=== PATIENT | female | born 1955 | race Caucasian/White ===

== ENCOUNTER 2020-03-05 06:23 | Day surgery (SDC) | payer BC ==
[2020-03-05] MEDS ORDERED: Propofol 200 MG/20 ML SDV ONE (07:01)
[2020-03-05] MEDS ORDERED: fentaNYL 100 MCG/2 ML SDV ONE (07:01)
[2020-03-05] MEDS ORDERED: Midazolam 1 MG/ML 2 ML SDV ONE (07:01)
[2020-03-05] MEDS ORDERED: Dextrose 5%-Lactated Ringers 1,000 ML IV SCH (07:30)
--- NOTE | 2020-03-15 13:36 | OR ---
DATE OF PROCEDURE: 03/05/2020 SURGEON: Ramy Baum MD PREOPERATIVE DIAGNOSIS: Indications for screening colonoscopy. POSTOPERATIVE DIAGNOSIS: Normal screening colonoscopy. OPERATIVE PROCEDURE: Colonoscopy. ANESTHESIA: IV sedation. INDICATIONS FOR PROCEDURE: A 65-year-old presenting for a screening colonoscopy. She has no personal or family history of colon neoplasia. Plan is to proceed with colonoscopy with biopsies and/or polypectomy as indicated. Potential risks including bleeding and perforation were discussed, and the patient wishes to proceed. DETAILS OF PROCEDURE: The patient was taken to the operating room, placed in a left lateral decubitus position. IV sedation was administered, after which the initial digital rectal exam was performed and was unremarkable. Scope was then passed into the rectum with retroflexion revealing uncomplicated hemorrhoidal columns. Scope was eventually passed to the level of the cecum. The prep was quite good with only a small amount of liquid stool present to that level. No abnormalities were noted. Specifically, there were no diverticula. No areas of colitis. No polyps or other signs of neoplasia. Scope was then withdrawn. The above findings reconfirmed, and the procedure then concluded. Recommendation would be to repeat colonoscopy in 10 years. Ramy Baum MD /[id number]
== END 2020-03-05 09:40 | disposition home or self-care (01) ==
LOC: JP.SDS 06:23
PROVIDERS: ATTEND Surgery
DX: Z12.11 Encounter for screening for malignant neoplasm of colon (principal); I10 Essential (primary) hypertension; E78.5 Hyperlipidemia, unspecified
CPT/HCPCS: 45378; J2250; J2704; J3010; J7121